=== PATIENT | male | born 1980 | race Caucasian/White ===

== ENCOUNTER 2016-08-15 11:40 | Emergency (ER) | payer OTHER ==
[~2016-08-15] VITALS: Ht 180.3 cm; Wt 108.8 kg
[2016-08-15 11:42] VITALS: Ht 180.3 cm; Wt 108.8 kg
[2016-08-15] MEDS ORDERED: BAC30OI TOP (12:58)
[2016-08-15] MEDS ORDERED: ACET325T33 PO (12:58)
[2016-08-15] MEDS ORDERED: DIPHTH/TET/ACEL PERTUSS (ADULT) 0.5 ML VIAL IM* ONE (13:00)
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
== END 2016-08-15 13:30 | disposition home or self-care (01) ==
LOC: FTE 11:40
DX: S00.81XA Abrasion of other part of head, initial encounter (principal); Y08.89XA Assault by other specified means, initial encounter; Y92.009 Unspecified place in unspecified non-institutional (private) residence as the place of occurrence of the external cause; Z23 Encounter for immunization
CPT/HCPCS: 90471; 90715; Z7502

== ENCOUNTER 2016-10-03 09:36 | Emergency (ER) | payer OTHER ==
[~2016-10-03] VITALS: Ht 180.3 cm; Wt 108.5 kg
[~2016-10-03 09:36] MED LIST: ACET325T33 PO; BACI28.34 TOP
[2016-10-03 09:49] VITALS: Ht 180.3 cm; Wt 108.5 kg
[2016-10-03] MEDS ORDERED: KETOROLAC 60 MG INJ IM STA (10:55)
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
[2016-10-03] MEDS ORDERED: IBUP800T25 PO (11:15)
[2016-10-03 11:39] LABS: ADD UMIC NO; URINE BILIRUBIN (Dip) NEGATIVE (NEGATIVE); URINE BLOOD (Dip) NEGATIVE (NEGATIVE); URINE COLOR LT. YELLOW (YELLOW); URINE GLUCOSE (Dip) NEGATIVE (NEGATIVE); URINE KETONES (Dip) NEGATIVE (NEGATIVE); URINE LEUKOCYTE ESTERASE (Dip) NEGATIVE (NEGATIVE); URINE NITRITE (Dip) NEGATIVE (NEGATIVE); URINE TOTAL PROTEIN (Dip) NEGATIVE (NEGATIVE); URINE UROBILINOGEN (Dip) 0.2 E.U./dL (0.1-1.0)
[2016-10-03 12:05] VITALS: BP 162/84; PULSE 68; RESP 20; TEMP 97.9
== END 2016-10-03 12:07 | disposition home or self-care (01) ==
LOC: FTE 09:36
DX: S39.011A Strain of muscle, fascia and tendon of abdomen, initial encounter (principal); X58.XXXA Exposure to other specified factors, initial encounter; Y92.9 Unspecified place or not applicable
CPT/HCPCS: 81003; J1885; 96372